=== PATIENT | male | born 1950 | race Caucasian/White ===

== ENCOUNTER 2022-01-10 10:15 | Outpatient (CLI) | payer MEDICARE, BC ==
[2022-01-10] MEDS ORDERED: Magnevist 469MG/ML 20 ML VIAL ONE (13:53)
== END 2022-01-10 10:16 | disposition home or self-care (01) ==
LOC: CSHMRI 10:15
PROVIDERS: ATTEND Otolaryngology Plastic Surgery within the Head & Neck
DX: H90.3 Sensorineural hearing loss, bilateral (principal); I67.82 Cerebral ischemia
CPT/HCPCS: 70553; 82565; A9579